=== PATIENT | male | born 1950 | race Caucasian/White ===

== ENCOUNTER 2020-01-23 15:24 | Outpatient (CLI) | payer MEDICARE, SELFPAY ==
[2020-01-23 15:54] LABS: Basophils Absolute Auto 0.1 K/mm3 (0.0-0.1); Basophils Percent Auto 0.8 % (0.2-1.2); Eosinophils Absolute Auto 0.1 K/mm3 (0-0.3); Eosinophils Percent Auto 1.9 % (0-4.4); Hematocrit 48.6 % (42.0-52.0); Hemoglobin 16.6 g/dL (14.0-18.0); Immature Granulocyte Absolute 0.02 K/mm3 (0.00-0.031); Immature Granulocyte Percent A 0.3 % (0-0.5); Lymphocytes Absolute Auto 1.76 K/mm3 (0.9-3.2); Lymphocytes Percent Auto 27.8 % (18.3-44.2); Mean Corpuscular HGB Conc 34.2 g/dl (32-36); Mean Corpuscular Hemoglobin 33.9 pg (26-34); Mean Corpuscular Volume 99.4 fl (80-100); Mean Platelet Volume 9.6 fl (7.4-10.4); Monocytes Absolute Auto 0.7 K/mm3 (0.1-0.6); Monocytes Percent Auto 10.4 % (2.6-8.5); Neutrophils Absolute Auto 3.7 K/mm3 (1.3-6.7); Neutrophils Percent Auto 58.8 % (45.5-73.1); Platelet Count Result 153 k/mm3 (150-375); Red Blood Count 4.89 M/mm3 (4.6-6.20); Red Cell Distribution Width 12.9 % (11.5-14.5); White Blood Count 6.3 K/mm3 (4.5-10.0)
[2020-01-23 16:07] LABS: Alanine Aminotransferase 45 U/L (4-50); Alkaline Phosphatase 98 U/L (38-126); Anion Gap 3 mmol/L (8-16); Aspartate Amino Transferase 64 U/L (17-59); Bilirubin,Total 0.9 mg/dL (0.2-1.3); Blood Urea Nitrogen 17 mg/dL (9-20); Carbon Dioxide 32 mmol/L (22-30); Chloride 105 mmol/L (98-107); Cholesterol 175 mg/dL (0-200); Estimated Glomerular Filt Rate > 60; Glucose 99 mg/dL (75-110); HDL Direct 66 mg/dL; Potassium 4.4 mmol/L (3.4-5.0); Sodium 140 mmol/L (137-145); Triglycerides 153 mg/dL (<150)
[2020-01-23 16:18] LABS: LDL Cholesterol Direct 94 mg/dL
[2020-01-23 16:37] LABS: Prostate Specific Antigen 2.6 ng/mL (< OR = 4.0)
== END 2020-01-23 15:25 | disposition home or self-care (01) ==
LOC: ANHLAB 15:28
PROVIDERS: PCP Internal Medicine; Visit Provider Nurse Practitioner
DX: I10 Essential (primary) hypertension (principal); Z13.220 Encounter for screening for lipoid disorders; Z12.5 Encounter for screening for malignant neoplasm of prostate
CPT/HCPCS: 36415; 80053; 80061; 84153; 85025; G0103

== ENCOUNTER 2020-02-11 09:57 | Outpatient (CLI) | payer MEDICARE, SELFPAY ==
--- NOTE | ~2020-02-11 | MR_ITS ---
EXAMINATION: MR lumbar spine wo con DATE: 02/11/2020 10:37 INDICATION: Lumbar radiculopathy. TECHNIQUE: Magnetic resonance imaging (MRI) of the lumbar spine was performed without intravenous con trast. Sequences included sagittal T2-weighted FSE, sagittal T2-weighted FS FSE, sagittal T1-weighted FSE, and axial T2-weighted FSE. COMPARISON: Lumbar spine MRI 02/01/2013 FINDINGS: There is 3 degrees levocurvature of lumbar spine. There is 3 mm retrolisthesis of L5 on S1. There is mild chronic anterior wedging of T11-L2 vertebral bodies. There are Schmorl's nodes at most levels. There are bridging endplate osteophytes at multiple levels in the thoracic spine and at L2-L 3 and L3-L4, consistent with diffuse idiopathic skeletal hyperostosis (DISH). There is mildly decreas ed disc height at L1-L2. There is moderately decreased disc height at L2-L3 and L3-L4 with disc calci fications. There is severely decreased disc height at L5-S1. The distal spinal cord signal intensity is normal. The conus medullaris is at L1. The following disc levels are specifically discussed: L1-L2: The disc is bulging and has an annular fissure. There is moderate right and mild left facet jo ann int osteoarthritis. There is mild right neural foraminal stenosis. There is mild central canal stenos is. L2-L3: The disc does not extend beyond the endplate margin. There is mild bilateral facet joint osteo arthritis. There is mild left neural foraminal stenosis. There is no central canal stenosis. L3-L4: The disc does not extend beyond the endplate margin. There is mild bilateral facet joint osteo arthritis. There is mild left neural foraminal stenosis. There is no central canal stenosis. L4-L5: The disc is bulging and has an annular fissure. There is moderate bilateral facet joint osteoa rthritis. There is moderate bilateral neural foraminal stenosis. There is mild central canal stenosis . L5-S1: The disc is bulging with superimposed left central extrusion with mass effect on left S1 nerve root in left lateral recess There is moderate bilateral facet joint osteoarthritis. There is moderat e bilateral neural foraminal stenosis. There is mild central canal stenosis. IMPRESSION: 1. Severe lumbar spondylosis with mild worsening at L5-S1. Reviewed, dictated and finalized at location A. ETING AUTOMATION MANAGER
--- NOTE | ~2020-02-11 | XR_ITS ---
EXAMINATION: XR knee LT 3V DATE: 02/11/2020 11:00 INDICATION: Left knee osteoarthritis. TECHNIQUE: 3 views of left knee were obtained. COMPARISON: None. FINDINGS: There is varus angulation at the knee. No fracture. There is severe osteoarthritis of media l compartment, moderate osteoarthritis of patellofemoral compartment, and mild osteoarthritis of late ral compartment. No knee joint effusion. IMPRESSION: 1. Severe left knee osteoarthritis. Reviewed, dictated and finalized at location A. CE CLERK ASSISTANT
--- NOTE | ~2020-02-11 | XR_ITS ---
EXAMINATION: XR knee RT 3V DATE: 02/11/2020 11:00 INDICATION: Right knee osteoarthritis. TECHNIQUE: 3 views of right knee were obtained. COMPARISON: None. FINDINGS: There is varus angulation at the knee. No fracture. There is severe osteoarthritis of media l and patellofemoral compartments and moderate osteoarthritis of lateral compartment. No knee joint e ffusion. IMPRESSION: 1. Severe right knee osteoarthritis. Reviewed, dictated and finalized at location A. ECT COACH
== END 2020-02-11 09:58 ==
PROVIDERS: PCP Internal Medicine; Visit Provider Nurse Practitioner Adult Health
DX: M17.0 Bilateral primary osteoarthritis of knee (principal); M47.26 Other spondylosis with radiculopathy, lumbar region
CPT/HCPCS: 72148; 73562

== ENCOUNTER 2020-03-10 09:54 | Outpatient (CLI) | payer MEDICARE, SELFPAY ==
--- NOTE | ~2020-03-10 | CT_ITS ---
EXAMINATION:CT lung screening DATE: 03/10/2020 10:20 INDICATION: Personal history of tobacco dependence. Current smoker with 60 pack year history. TECHNIQUE: Computed tomography (CT) of the chest was performed without intravenous contrast. Automate d exposure control and iterative reconstruction technique were employed. The dose-length product (DLP ) was 224.37 mGy-cm. COMPARISON: CT abdomen and pelvis 05/04/2018 FINDINGS: There is mild emphysema. There are a few 2-3 mm nodules in the lungs. There are chronic per ipheral reticular opacities in the inferior lungs. No pleural effusion. The heart size is normal. The re are coronary artery calcifications. No pericardial effusion. There is a small sliding hiatal herni a. There is a 3.6 cm cyst in left kidney. There is a 15 mm cyst in the liver. There are bridging endp late osteophytes at multiple levels in the spine, consistent with diffuse idiopathic skeletal hyperos tosis (DISH). There is an old healed right rib fracture. IMPRESSION: 1. Lung-RADS category 2: Benign appearance or behavior. Continue annual screening with noncontrast lo w-dose chest CT in 12 months. Reviewed, dictated and finalized at location A. L PHOTOGRAPHERS' IMPRESSION: 1. Lung-RADS category 2: Benign appearance or behavior. Continue annual screeni ng with noncontrast low-dose chest CT in 12 months.
--- NOTE | ~2020-03-10 | US_ITS ---
EXAMINATION: US aorta [facility] DATE: 03/10/2020 10:39 CALL CENTER TRAINER INDICATION: Screening for aortic aneurysm. History of tobacco dependence. TECHNIQUE: Grayscale, color Doppler, and pulsed Doppler images of the aorta and common iliac arteries were obtained. COMPARISON: None. FINDINGS: The proximal aorta is obscured by bowel gas. The mid aorta measures 1.6 cm greatest sagittal dimensio n. The distal aorta measures 1.6 cm greatest sagittal dimension. The right common internal iliac arabella ry measures 1.1 cm. The left common iliac artery measures 1.1 cm. IMPRESSION: 1. Normal caliber aorta. Proximal abdominal aorta not visualized due to overlying bowel gas. Reviewed, dictated and finalized at location A. CENTER TRAINER IMPRESSION: 1. Normal caliber aorta. Proximal abdominal aorta not visualized due to overlyi ng bowel gas.
== END 2020-03-10 09:55 | disposition home or self-care (01) ==
PROVIDERS: PCP Internal Medicine; Visit Provider Clinical Nurse Specialist
DX: Z12.2 Encounter for screening for malignant neoplasm of respiratory organs (principal); Z87.891 Personal history of nicotine dependence
CPT/HCPCS: 76706; G0297